=== PATIENT | male | born 1940 | race Caucasian/White ===

== ENCOUNTER 2019-05-07 10:20 | Outpatient (CLI) | payer MEDICARE ==
[~2019-05-07 10:20] MED LIST: EPINEPHrine 1 MG/ML AMP ONE; Iopamidol 300 61% 50 ML VIAL FS ONE; Lidocaine 1% PF 10 ML AMP ONE
--- NOTE | 2019-05-07 11:52 | RAD ---
PROCEDURE: Fluoroscopic left shoulder arthrogram INDICATION: Left shoulder pain COMPARISON: None TECHNIQUE: Informed consent was obtained. 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 The patient was placed supine on the fluoroscopic table. A timeout was performed. Site overlying the left shoulder was prepped and draped in the usual sterile fashion. Buffered 1% lidocaine was admi nistered into the overlying subcutaneous tissues. Under fluoroscopic guidance, a 22-gauge spinal needle was guided down into the left glenohumeral joint. Confirmation of needle localization was conf irmed by injecting 1 cc of the buffered 1% lidocaine. Following this 8 0)of the dilute Isovue solution CT Mix: 30 mL total volume consisting of 20 mL normal saline, 5 mL Isovue 300, 5 mL 1% Lido karla, 0.1 mL Epi 1 mg/ml) was injected. Contrast was visualized within the left glenohumeral joint with fluoroscopy. The needle was removed. The injection site was then cleansed and bandage. The patie nt tolerated the injection without difficulty. Fluoroscopic time: 1.1minutes Fluoroscopic dose: 62mcg/sq m FINDINGS: Severe left glenohumeral osteoarthrosis. Left-sided pacemaker. IMPRESSION: Successful left shoulder arthrogram. The patient is to have a follow-up CTarthrogram of t he left shoulder. Please see this report for further details.
--- NOTE | 2019-05-07 12:31 | CT ---
CT ARTHROGRAM OF THE LEFT SHOULDER: INDICATION: Left shoulder pain. TECHNIQUE: Multiple CT images were obtained of the left shoulder following intraarticular administration of dilu te Isovue solution. Please see the separately dictated left shoulder arthrogram report for full details concerning the injection technique. FINDINGS: There are calcified pleural plaques involving the left hemithorax. There is a dual-lead pacemaker ove rlying the left chest wall. There are coronary artery and thoracic aortic calcifications. No acute fracture is evident. There is advanced glenohumeral osteoarthrosis. There is a chronic-appearing grad e III AC separation with some fragmentation involving the distal left clavicle. There is a full-thickness tear involving the anterior supraspinatus at the footprint measuring 1.1 x 1.5 cm in i ts greatest AP and mediolateral dimensions respectively. There is some intratendinous delamination of the tear into the anterior to mid aspect of the supraspinatus tendon. There is contrast extending into the subacromial subdeltoid bursa. There is nonvisualization of a normal intraarticular biceps tendon consistent with complete disruption and distal retraction. No large intraarticular body is artemio dent. No noy muscular atrophy is evident. No enlarged lymph nodes are present. IMPRESSION: 1. Full-thickness tear of the anterior supraspinatus at the footprint with some mild intratendinous d elamination extending into the anterior to mid supraspinatus tendon. 2. Full-thickness disruption of the long head biceps tendon with distal retraction beyond the bicipit al groove. 3. Severe glenohumeral osteoarthrosis. 4. Chronic grade III AC separation with remote-appearing distal fragmentation of the distal clavicle. 5. 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 Transcribed Date/Time: 05/07/2019 1:13 PM
== END 2019-05-07 10:21 | disposition home or self-care (01) ==
LOC: RAD 10:20
PROVIDERS: ATTEND Orthopaedic Surgery
DX: M25.512 Pain in left shoulder (principal); M75.122 Complete rotator cuff tear or rupture of left shoulder, not specified as traumatic; M19.012 Primary osteoarthritis, left shoulder; Z98.890 Other specified postprocedural states
CPT/HCPCS: 23350

== ENCOUNTER 2019-06-22 10:16 | Outpatient (CLI) | payer MEDICARE ==
--- NOTE | 2019-06-22 10:43 | RAD ---
KUB AND UPRIGHT: Date: 06/22/2019 HISTORY: Abdominal pain, constipation. History of colon polyps. FINDINGS: The bowel gas pattern is nonobstructed with air in both small and large bowel. No free air demonstrat ed. No renal calculi. Postoperative changes at L5-S1 level are noted. Dorsal column stimulator is pre sent. There are arthritic changes of the spine and hips. IMPRESSION: No acute changes. POS: YANELIS
== END 2019-06-22 10:17 | disposition home or self-care (01) ==
LOC: BICRAD 10:16
PROVIDERS: ATTEND Internal Medicine Gastroenterology
DX: K59.00 Constipation, unspecified (principal); R63.4 Abnormal weight loss; R19.4 Change in bowel habit; Z80.0 Family history of malignant neoplasm of digestive organs; Z86.010 Personal history of colon polyps
CPT/HCPCS: 74019

== ENCOUNTER 2019-07-19 05:38 | Inpatient (IN) | payer MEDICARE ==
[2019-07-18 10:46] VITALS: BMI 33.9
[2019-07-19] MEDS ORDERED: Phenylephrine HCL 10 MG/ML VIAL ONE (06:06)
[2019-07-19] MEDS ORDERED: Lidocaine 2% Jelly 5 ML TUBE ONE (06:06)
[2019-07-19] MEDS ORDERED: Vancomycin 1.5 GRAM/300 ML BAG 1.5 GM/300 ML BAG ONE (06:07)
[2019-07-19] MEDS ORDERED: Midazolam HCl 2 mg/2 ml Vial ONE (06:36)
[2019-07-19] MEDS ORDERED: Fentanyl 100 MCG/2 ML VIAL ONE (06:36)
[2019-07-19 06:39] LABS: #Basophils 0.1 thou/uL (0.0-0.2); #Eosinphils 0.2 thou/uL (0.0-0.7); #Lymphocytes 4.2 thou/uL (1.20-3.40); #Neutrophils 7.2 thou/uL (1.40-6.50); %Basophils 0.7 % (0.0-1.0); %Eosinophils 1.5 % (0.0-10.0); %Lymphocytes 32.9 % (21.0-51.0); %Monocytes 7.9 % (0.0-10.0); Hemoglobin 14.5 g/dL (14.0-18.0); Mean Corpuscular HGB CONC 35.8 g/dL (32.0-36.0); Mean Corpuscular Hemoglobin 33.6 pg (27.0-31.0); Mean Corpuscular Volume 93.8 fL (78.0-98.0); Mean Platelet Volume 7.5 fL (7.4-10.4); Platelet Count 247 thou/uL (130-400); Red Blood Cell (RBC) Count 4.32 mill/uL (4.70-6.10); White Blood Cell (WBC) Count 12.6 thou/uL (4.8-10.8)
[2019-07-19 06:45] LABS: Prothrombin Time 12.8 SEC (12.0-14.7)
[2019-07-19 06:58] LABS: Anion Gap 14 mmol/L (10-20); BUN (Urea Nitrogen) 21 mg/dL (8.4-25.7); Calc. Creatinine Clearance 89 mL/min (70-130); Calcium 9.3 mg/dL (7.8-10.44); Carbon Dioxide 22 mmol/L (23-31); Chloride 109 mmol/L (98-107); Estimated GFR-MDRD 67; Glucose 86 mg/dL (83-110); Potassium 3.9 mmol/L (3.5-5.1); Sodium 141 mmol/L (136-145)
[2019-07-19] MEDS ORDERED: Tranexamic Acid 1,000 MG/10 ML VIAL ONE (07:18)
[2019-07-19] MEDS ORDERED: Sodium Chloride 0.9% 100 ML ONE (07:18)
[2019-07-19] MEDS ORDERED: traMADol HCl 50 MG TAB PO PRN ×4 (07:26→11:30)
[2019-07-19] MEDS ORDERED: Ropivacaine 0.2% 550 ML 550 ML NERVE BLCK SCH (07:26)
[2019-07-19] MEDS ORDERED: Ondansetron PF 4 MG/2 ML Vial IVP PRN ×2 (07:26→11:30)
[2019-07-19] MEDS ORDERED: Zolpidem Tartrate 5 MG TAB PO PRN ×2 (07:26→11:30)
[2019-07-19] MEDS ORDERED: Acetaminophen 325 MG TAB PO PRN ×2 (07:26→11:30)
[2019-07-19] MEDS ORDERED: HYDROcodone/Acetaminophen 10/325 mg Tablet PO PRN ×4 (07:26→11:30)
[2019-07-19] MEDS ORDERED: Promethazine HCl 25 MG/ML VIAL IM PRN ×2 (07:26→10:26)
[2019-07-19] MEDS ORDERED: Fentanyl 100 MCG/2 ML VIAL SLOW IVP PRN (07:27)
[2019-07-19] MEDS ORDERED: Ropivacaine 0.2% HCl/PF (40 MG/20 ML VIAL) ONE (07:30)
[2019-07-19] MEDS ORDERED: Rocuronium Bromide 10 MG/ML (10ML VIAL) ONE (07:30)
[2019-07-19] MEDS ORDERED: PHENYLEPHRINE-NS 100 MCG/ML 10 ML SYRINGE ONE (07:30)
[2019-07-19] MEDS ORDERED: Ropivacaine 0.5% HCl/PF (150 MG/30 ML VIAL) ONE (07:30)
[2019-07-19] MEDS ORDERED: Dexamethasone 20 MG/5 ML VIAL ONE (07:30)
[2019-07-19] MEDS ORDERED: Ondansetron PF 4 MG/2 ML Vial ONE (07:30)
[2019-07-19] MEDS ORDERED: PROPOFOL 200 MG/20 ML VIAL ONE (07:30)
[2019-07-19] MEDS ORDERED: Glycopyrrolate 0.2 MG/ML 5 ML SYRINGE ONE (07:30)
--- NOTE | 2019-07-19 09:05 | HP ---
CHIEF COMPLAINT: Left shoulder pain. HISTORY OF PRESENT ILLNESS: Mr. Bose is an 78-year-old male, who presents for follow up pain of his bilateral shoulder, left greater than right. The patient states that the pain interrupts his sleep. He has pain with increased activities around the house. His previous injections have provided relief, but diminishing relief. He continues to have pain despite conservative measures. The patient is right-hand dominant. He still takes care of cattle. Pain can be 4 to 7/10, difficulty sleeping on that side. PAST MEDICAL HISTORY: Includes hypercholesterolemia, hypertension, depression, hair loss, sleep apnea, and vertigo. PAST SURGICAL HISTORY: Left shoulder surgery x2, unspecified knee surgery, low back surgery, cervical fusion, left total knee replacement, arthroscopy, right total knee arthroplasty, lumbar laminectomy, and cervical laminectomy. ALLERGIES: TO TAPES, ADHESIVES. MEDICATIONS: Include; 1. Aspirin. 2. Fluoxetine. 3. Gabapentin. 4. Linaclotide. 5. Lutein. 6. Magnesium. 7. Melatonin. 8. Multivitamin. 9. Iron. 10. Folic acid. 11. Centrum Silver. 12. . 13. Simvastatin. 14. Vitamin C. 15. . SOCIAL HISTORY: The patient is a nonsmoker. No history of alcohol use. 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 PHYSICAL EXAMINATION: GENERAL: Alert and oriented male, in no acute distress, resting comfortably in bed. Hard of hearing. MUSCULOSKELETAL: Left shoulder, the patient still has about 104 degrees of overhead elevation, 4 degrees of external rotation. The patient has 4/5 infraspinatus, 4 -/5 supraspinatus strength. The patient has pain with Dupont'. Neurovascularly intact distally. Brisk cap refill. DIAGNOSTIC DATA: X-ray show a B1 glenoid with goats graham deformity. CT scan shows a full-thickness supraspinatus tear with retraction and some mild atrophy, full-thickness biceps tear and a chronic AC joint separation. IMPRESSION: Left rotator cuff tear, degenerative arthritis. ASSESSMENT AND PLAN: Given the patient's CT scan results, I am concerned about performing total shoulder if there is no intact cuff. Occasionally on the arthrogram, there is a site over-read, but if I do not find a cuff, I would recommend a reverse shoulder arthroplasty for the patient. I discussed with him the risks and benefits of reverse shoulder versus total. I discussed the risks and benefits of the surgery to include, pain, scar, bleeding, infection, damage to vital structures, decreased range of motion and strength, continued pain despite surgical intervention, and loss of life or limb. The patient and family understands these risks and benefits and elected to proceed. They understands that afterwards if it is reverse, he will do increased weightbearing as before and we will have to limit his weightbearing to this left arm. They understands this. He would like to proceed with a left total versus reverse shoulder arthroplasty. Job ID: [id number] MTDD
[2019-07-19] MEDS ORDERED: Ondansetron HCl/PF 4 MG/2 ML Vial IVP PRN (10:26)
[2019-07-19] MEDS ORDERED: Promethazine HCl 25 MG/ML VIAL SLOW IVP PRN (10:26)
[2019-07-19] MEDS ORDERED: HYDROmorphone 2 MG/ML VIAL SLOW IVP PRN (10:26)
[2019-07-19] MEDS ORDERED: Ondansetron ODT 4 MG TAB PO PRN (11:30)
[2019-07-19] MEDS ORDERED: Bisacodyl 10 MG SUPP PR PRN (11:30)
[2019-07-19] MEDS ORDERED: Morphine 2 MG/ML SYRINGE SLOW IVP PRN (11:30)
[2019-07-19] MEDS ORDERED: Ketorolac Tromethamine 30 MG/ML VIAL IM/IV PRN (11:30)
[2019-07-19] MEDS ORDERED: Methocarbamol 500 MG TAB PO PRN (11:30)
[2019-07-19] MEDS ORDERED: Methocarbamol 1 GM/10 ML VIAL SLOW IVP PRN (11:30)
[2019-07-19] MEDS ORDERED: Milk Of Magnesia 30 ML UDCUP PO PRN (11:30)
[2019-07-19] MEDS ORDERED: diphenhydrAMINE 50 MG CAP PO PRN (11:30)
[2019-07-19] MEDS ORDERED: Famotidine 20 MG TAB PO SCH (12:15)
[2019-07-19] MEDS: Ketorolac Tromethamine 30 MG/ML VIAL IVP SCH ×3 (14:01→23:28)
--- NOTE | 2019-07-19 15:27 | OP ---
DATE OF PROCEDURE: 07/19/2019 PREOPERATIVE DIAGNOSES: 1. Left shoulder osteoarthritis. 2. Left full-thickness tear based on CT arthrogram. 3. Biceps rupture. POSTOPERATIVE DIAGNOSES: 1. Left shoulder osteoarthritis. 2. Left biceps rupture. 3. No full-thickness rotator cuff tear noted. PROCEDURE PERFORMED: Left total shoulder arthroplasty. VACUUM DRUM DRIER OPERATOR: Chris Bullock PA-C ANESTHESIOLOGIST: Tiffanie Menon MD ANESTHESIA: The patient received a general endotracheal intubation with interscalene block. ESTIMATED BLOOD LOSS: 300 mL. TOURNIQUET TIME: None. IMPLANTS: A Tornier Ascend Flex standard size 4C humeral stem, a Colles head 48 x 18 mm, and an Aequalis Perform CortiLoc pegged glenoid size M40. ANTIBIOTICS: Simplex cement. The patient had TXA 1 g, vancomycin 1.5 g, and Ancef 2 g. COMPLICATIONS: None. HISTORY OF PRESENT ILLNESS: Mr. Bose is an 78-year-old male, who works as a arias, very active. He had 140 to 150 degrees of rotate motion with relatively good strength. CT scan showed a cuff tear. I discussed with the patient the risks and benefits of left total shoulder versus reverse shoulder arthroplasty and biceps. The patient desired as much function and ability to weight bear. I was concerned about a reverse with picking up 50-pound feed sacks. I discussed the risks and benefits of a left total shoulder versus reverse to include pain, scar, bleeding, infection, damage to vital structures, decreased range of motion and strength, need for revision, continued pain despite surgery intervention, and loss of life or limb. The patient understands the risks and benefits of the procedure and elected to proceed. DESCRIPTION OF PROCEDURE: Time-out was performed designating the patient's left upper extremity as the operative site based on site, consents, and marking. After a time-out, the patient's left upper extremity was prepped and draped in a sterile fashion. An incision was made down through the deltopectoral interval. Ko had been placed and was medial over the patient's pacemaker. We made an incision down through the skin, came into the interval, took down some of the pecs, exposed the humerus. The biceps was ruptured. We came down, took a little through the conjoint, exposed medial and lateral. We came down through the biceps groove, which had already been ruptured. We took an osteotome, took a section of the lesser for LTO, peeled the remainder and exposed the humeral head. The cuff actually although bulbous was intact. There was cuff intact throughout the footprint. Given this, we inverted the head, we elected to go with a total shoulder for the patient's overall improved function. We made an incision, took a blade, cut the bone and removed the humeral head. We rongeured off the osteophytes inferiorly circumferentially to remnant normal humerus. We then started our broach. We broached up to a size 3, placed our reamer, reamed down, cut to ensure we had a good plane surface and then locked into place, put a . We moved the glenoid at 360 degree release of the labrum, exposed the glenoid. We placed a 5 degree angulated M40, which seemed to size the best, pinned it into place and reamed on top. We started at the center hole, placed our guide in place and drilled the 3 pegs for CortiLoc pegged glenoid, trialed, had good overall fit. We removed, washed, dried out the glenoid, cemented the pegs and cemented our pegged glenoid, let it rest for 18 minutes. We went back, we broached up, placed a size 4 stem. Had better fit, overall alignment. We then placed our 4, 48, it tracked well, anterior to posterior. We had overall good range of motion, aligned up well good mismatch. Therefore, we removed it, placed drill holes for #4 Ethibond on the border of the lesser LTO to help to kind of sew it down into place. We placed four #5 Ethibonds and then one through the cuff and out through the stem as an "around the world" stitch to attach to our initial cuff stitch, passed all 4 stitches in whipstitch fashion and sewed them closed, cut the needles. We used a #1 Ethibond to close the rotator interval. We closed with the [id number] stitch, cut the suture, washed and had to cauterize portion of the saphenous. He had some damage to the pectoral and deltoid from retraction, but otherwise good alignment. We washed, closed with 0, 2-0, and skin felipe. The patient will begin passive range of motion, external rotation not greater than 30, and pendulum and rufus exercises will be followed in-house. He will be discharged home tomorrow if everything is in order. Job ID: [id number]
[2019-07-19] MEDS: CEFAZOLIN 2 GM in Premix Bag 1 BAG IVPB SCH ×2 (16:06→23:30)
--- NOTE | 2019-07-19 16:48 | EKG ---
Test Reason : PREOP Blood Pressure : / mmHG Vent. Rate : 062 BPM Atrial Rate : 062 BPM P-R Int : 214 ms QRS Dur : 096 ms QT Int : 424 ms P-R-T Axes : 078 -08 011 degrees QTc Int : 430 ms Electronic atrial pacemaker When compared with ECG of 31-OCT-2016 09:16, Electronic atrial pacemaker has replaced Sinus rhythm Nonspecific T wave abnormality, worse in Inferior leads Confirmed by DR. Christopher HILL ([id number]) on 07/19/2019 4:47:53 PM Referred By: HAKEEM Confirmed By:DR. Christopher HILL
[2019-07-19] MEDS: Lactated Ringer's 1,000 ML IV SCH (17:30)
[2019-07-19] MEDS ORDERED: Vancomycin 1.5 GRAM/300 ML BAG 1.5 GM in Premix Bag 1 BAG IVPB SCH (18:00)
[2019-07-19] MEDS ORDERED: Vancomycin HCl 1.5 GM in Sodium Chloride 0.9% 250 ML 300 ML IVPB SCH (18:00)
[2019-07-19] MEDS: Famotidine 20 MG TAB PO SCH (20:27)
[2019-07-19] MEDS ORDERED: Gabapentin 300 MG CAP PO SCH (21:30)
[2019-07-19] MEDS ORDERED: Aspirin 81 mg Enteric Coated Tablet PO SCH (21:30)
[2019-07-19] MEDS ORDERED: Simvastatin 20 MG TAB PO SCH (21:30)
[2019-07-19] MEDS ORDERED: Melatonin 3 MG TAB PO SCH (21:30)
[2019-07-20] MEDS: Lactated Ringer's 1,000 ML IV SCH (05:32)
[2019-07-20] MEDS: Ketorolac Tromethamine 30 MG/ML VIAL IVP SCH (06:31)
[2019-07-20] MEDS ORDERED: LINACLOTIDE 290 MCG PO SCH (08:00)
[2019-07-20] MEDS: Famotidine 20 MG TAB PO SCH (08:52)
[2019-07-20] MEDS ORDERED: Multivitamin W/ Minerals 1 TAB PO SCH (09:00)
[2019-07-20] MEDS ORDERED: FLUoxetine HCl 20 MG CAP PO SCH (09:00)
[2019-07-20] MEDS ORDERED: Gabapentin 300 MG CAP PO SCH (09:00)
[2019-07-20] MEDS ORDERED: Magnesium Oxide 250 MG TAB PO SCH (09:00)
[2019-07-20 09:51] VITALS: BP 148/82; TEMP 98.6
[2019-07-20] MEDS ORDERED: Ibuprofen 200 MG TAB PO SCH (11:00)
[2019-07-20] MEDS ORDERED: Melatonin 3 MG TAB PO SCH (21:00)
[2019-07-20] MEDS ORDERED: Simvastatin 20 MG TAB PO SCH (21:00)
[2019-07-20] MEDS ORDERED: Aspirin 81 mg Enteric Coated Tablet PO SCH (21:00)
== END 2019-07-20 15:20 | disposition home or self-care (01) | DRG 483 ==
LOC: SDC 05:38 → SJJU 06:54 → SDC 07-20 10:02
PROVIDERS: ADMIT Orthopaedic Surgery; ATTEND Orthopaedic Surgery
PROC: 0RRK0JZ Replacement of Left Shoulder Joint with Synthetic Substitute, Open Approach (ICD-10-PCS; principal; 2019-07-19)
DX: M19.012 Primary osteoarthritis, left shoulder (principal); E78.00 Pure hypercholesterolemia, unspecified; I10 Essential (primary) hypertension; F32.9 Major depressive disorder, single episode, unspecified; Z96.653 Presence of artificial knee joint, bilateral; G47.33 Obstructive sleep apnea (adult) (pediatric); E78.5 Hyperlipidemia, unspecified; K21.9 Gastro-esophageal reflux disease without esophagitis; N40.0 Benign prostatic hyperplasia without lower urinary tract symptoms; S43.422A Sprain of left rotator cuff capsule, initial encounter; Z98.1 Arthrodesis status; Z95.0 Presence of cardiac pacemaker; Z91.048 Other nonmedicinal substance allergy status; Z79.82 Long term (current) use of aspirin; Z79.899 Other long term (current) drug therapy
CPT/HCPCS: 36415; 80048; 85025; 85610; 93005; 93010; A4306; C1713; J0690; J1100; J1885; J2250; J2370; J2405; J2704; J2795; J3010; J3490

== ENCOUNTER 2019-08-31 19:27 | Emergency (ER) | payer MEDICARE | END 2019-08-31 20:11 | disposition home or self-care (01) | LOC: ERS 19:27 | DX: K11.5 Sialolithiasis (principal); E78.5 Hyperlipidemia, unspecified; E78.00 Pure hypercholesterolemia, unspecified; I10 Essential (primary) hypertension; F32.9 Major depressive disorder, single episode, unspecified; Z79.82 Long term (current) use of aspirin; Z79.899 Other long term (current) drug therapy | CPT/HCPCS: 99282 ==

== ENCOUNTER 2022-09-27 20:33 | Inpatient (IN) | payer MEDICARE ==
[2022-09-27 22:09] VITALS: BMI 25.2
[2022-09-27] MEDS ORDERED: Acetaminophen 325 MG TAB PO PRN (22:30)
[2022-09-27] MEDS ORDERED: Calcium Carbonate 500 MG ChewTAB PO PRN (22:30)
[2022-09-27] MEDS ORDERED: Senokot S 8.6-50 MG TAB PO PRN (22:30)
[2022-09-27] MEDS ORDERED: Ondansetron ODT 4 MG TAB PO PRN (22:30)
[2022-09-27] MEDS ORDERED: Aspirin Chewable 81 MG TAB PO SCH (22:45)
[2022-09-28] MEDS ORDERED: Melatonin 3 MG TAB PO SCH ×4 (00:45→21:00)
[2022-09-28 04:49] LABS: #Eosinphils 0.1 thou/uL (0.0-0.7); #Monocytes 0.8 thou/uL (0.11-0.59); #Neutrophils 3.3 thou/uL (1.40-6.50); %Basophils 0.5 % (0.0-1.0); %Eosinophils 1.9 % (0.0-10.0); %Lymphocytes 28.8 % (21.0-51.0); %Monocytes 13.1 % (0.0-10.0); %Neutrophils 55.4 % (42.0-75.0); Hemoglobin 10.3 g/dL (14.0-18.0); Mean Corpuscular HGB CONC 33.6 g/dL (32.0-36.0); Mean Corpuscular Hemoglobin 32.9 pg (27.0-31.0); Mean Corpuscular Volume 98.1 fl (78.0-98.0); Mean Platelet Volume 9.9 fL (7.4-10.4); Platelet Count 145 10x3/uL (130-400); RBC Distribution Width 12.1 % (11.5-14.5); Red Blood Cell (RBC) Count 3.13 mill/uL (4.70-6.10); White Blood Cell (WBC) Count 5.9 10x3/uL (4.8-10.8)
[2022-09-28 05:15] LABS: ALT (SGPT) 10 U/L (8-55); AST (SGOT) 12 U/L (5-34); Albumin 3.6 g/dL (3.4-4.8); Alkaline Phosphatase 96 U/L (40-110); Anion Gap 12 mmol/L (10-20); BUN (Urea Nitrogen) 16 mg/dL (8.4-25.7); Bilirubin, Total 0.7 mg/dL (0.2-1.2); Calc. Creatinine Clearance 63 mL/min (70-130); Calcium 8.7 mg/dL (7.8-10.44); Carbon Dioxide 22 mmol/L (23-31); Cardiac Risk 3.2 (Less than 4.5); Chloride 111 mmol/L (98-107); Cholesterol 123 mg/dl (< 200 Desired); Estimated GFR 67; Globulin 2.6 g/dL (2.4-3.5); Glucose 89 mg/dL (83-110); HDL Cholesterol 39 mg/dL (>60 Neg Risk); LDL Cholesterol, Calculated 63 mg/dL; Potassium 3.9 mmol/L (3.5-5.1); Protein, Total 6.2 g/dL (5.8-8.1); Sodium 141 mmol/L (136-145); Triglycerides 105 mg/dL (Less than 150)
[2022-09-28] MEDS: Gabapentin 300 MG CAP PO SCH ×2 (08:03→20:21)
[2022-09-28] MEDS: Multivitamin W/ Minerals 1 TAB PO SCH (08:03)
[2022-09-28] MEDS: FLUoxetine HCl 20 MG CAP PO SCH (08:04)
[2022-09-28] MEDS: Aspirin 81 mg Enteric Coated Tablet PO SCH (08:04)
[2022-09-28] MEDS: Famotidine 20 MG TAB PO SCH ×2 (08:04→20:21)
[2022-09-28] MEDS: (Linaclotide [Linzess] 290 MCG Capsule) PO SCH (08:04)
[2022-09-28] MEDS ORDERED: Magnesium Oxide 400 MG TAB PO SCH (09:00)
[2022-09-28] MEDS ORDERED: Atorvastatin Calcium 40 MG TAB PO SCH (21:00)
[2022-09-28] MEDS ORDERED: traZODone HCl 50 MG TAB PO SCH (23:00)
[2022-09-29 05:22] LABS: #Eosinphils 0.2 thou/uL (0.0-0.7); #Monocytes 0.6 thou/uL (0.11-0.59); #Neutrophils 2.5 thou/uL (1.40-6.50); %Basophils 0.4 % (0.0-1.0); %Lymphocytes 33.5 % (21.0-51.0); %Monocytes 12.8 % (0.0-10.0); %Neutrophils 50.1 % (42.0-75.0); Hemoglobin 11.2 g/dL (14.0-18.0); Mean Corpuscular HGB CONC 32.7 g/dL (32.0-36.0); Mean Corpuscular Hemoglobin 33.1 pg (27.0-31.0); Mean Corpuscular Volume 101.2 fl (78.0-98.0); Platelet Count 152 10x3/uL (130-400); RBC Distribution Width 12.4 % (11.5-14.5); Red Blood Cell (RBC) Count 3.38 mill/uL (4.70-6.10); White Blood Cell (WBC) Count 4.9 10x3/uL (4.8-10.8)
[2022-09-29 05:45] LABS: Anion Gap 11 mmol/L (10-20); BUN (Urea Nitrogen) 12 mg/dL (8.4-25.7); Calc. Creatinine Clearance 69 mL/min (70-130); Calcium 8.7 mg/dL (7.8-10.44); Carbon Dioxide 26 mmol/L (23-31); Chloride 107 mmol/L (98-107); Estimated GFR 76; Glucose 88 mg/dL (83-110); Sodium 140 mmol/L (136-145)
[2022-09-29] MEDS: FLUoxetine HCl 20 MG CAP PO SCH (08:19)
[2022-09-29] MEDS: Multivitamin W/ Minerals 1 TAB PO SCH (08:19)
[2022-09-29] MEDS: Famotidine 20 MG TAB PO SCH (08:19)
[2022-09-29] MEDS: Gabapentin 300 MG CAP PO SCH (08:19)
[2022-09-29] MEDS: Aspirin 81 mg Enteric Coated Tablet PO SCH (08:19)
[2022-09-29] MEDS: (Linaclotide [Linzess] 290 MCG Capsule) PO SCH (08:25)
[2022-09-29 11:50] VITALS: BP 146/82; TEMP 98
== END 2022-09-29 15:13 | disposition home or self-care (01) | DRG 149 ==
LOC: NEURO 21:46 → OBSVTOIN 09-28 11:53
PROVIDERS: ADMIT Student in an Organized Health Care Education/Training Program; ATTEND Internal Medicine
DX: H81.399 Other peripheral vertigo, unspecified ear (principal); R27.0 Ataxia, unspecified; I95.9 Hypotension, unspecified; E78.5 Hyperlipidemia, unspecified; R00.1 Bradycardia, unspecified; N18.2 Chronic kidney disease, stage 2 (mild); I12.9 Hypertensive chronic kidney disease with stage 1 through stage 4 chronic kidney disease, or unspecified chronic kidney disease; Z96.619 Presence of unspecified artificial shoulder joint; Z96.653 Presence of artificial knee joint, bilateral; F32.9 Major depressive disorder, single episode, unspecified; Z95.0 Presence of cardiac pacemaker; Z79.82 Long term (current) use of aspirin; Z79.899 Other long term (current) drug therapy; Z90.89 Acquired absence of other organs; Z90.79 Acquired absence of other genital organ(s); Z90.49 Acquired absence of other specified parts of digestive tract
CPT/HCPCS: 36415; 70551; 80048; 80053; 80061; 85025; 93306; 93880; G0378; J1650

== ENCOUNTER 2024-06-14 00:42 | Observation (INO) | payer MEDICARE ==
[2024-06-15 02:17] VITALS: BMI 23.4
[2024-06-15] MEDS ORDERED: Ondansetron ODT 4 MG TAB PO PRN (02:45)
[2024-06-15] MEDS ORDERED: Acetaminophen 650 MG Suppository PR PRN (02:45)
[2024-06-15] MEDS ORDERED: Ondansetron PF 4 MG/2 ML Vial IVP PRN (02:45)
[2024-06-15] MEDS ORDERED: Calcium Carbonate 500 MG ChewTAB PO PRN (02:45)
[2024-06-15 04:48] LABS: #Basophils 0.03 10x3/uL (0.0-0.2); %Basophils 0.6 % (0.0-1.0); %Eosinophils 3.3 % (0.0-10.0); %Lymphocytes 28.2 % (21.0-51.0); %Monocytes 16.3 % (0.0-10.0); %Neutrophils 51.4 % (42.0-75.0); Hematocrit 32.4 % (42.0-52.0); Hemoglobin 11.3 g/dL (14.0-18.0); Mean Corpuscular HGB CONC 34.9 g/dL (32.0-36.0); Mean Corpuscular Hemoglobin 34.5 pg (27.0-31.0); Mean Corpuscular Volume 98.8 fL (78.0-98.0); Mean Platelet Volume 9.9 fL (7.4-10.4); Platelet Count 173 10x3/uL (130-400); RBC Distribution Width 12.1 % (11.5-14.5); Red Blood Cell (RBC) Count 3.28 mill/uL (4.70-6.10)
[2024-06-15 06:59] LABS: Troponin I 0.016 ng/mL (< 0.028)
[2024-06-15 08:45] LABS: ALT (SGPT) 8 U/L (Less than 45); AST (SGOT) 19 U/L (11-34); Albumin 3.5 g/dL (3.1-4.5); Anion Gap 13 mmol/L (10-20); BUN (Urea Nitrogen) 14 mg/dL (8.4-25.7); Bilirubin, Total 1.2 mg/dL (0.3-1.2); Calc. Creatinine Clearance 54 mL/min (70-130); Calcium 9.2 mg/dL (7.8-10.44); Carbon Dioxide 22 mmol/L (23-31); Cardiac Risk 2.4 (Less than 4.5); Chloride 108 mmol/L (98-107); Cholesterol 112 mg/dl (< 200 Desired); Estimated GFR 64; Globulin 3.3 g/dL (2.4-3.5); Glucose 127 mg/dL (83-110); HDL Cholesterol 46 mg/dL (>60 Neg Risk); LDL Cholesterol, Calculated 51 mg/dL; Potassium 3.6 mmol/L (3.5-5.1); Protein, Total 6.8 g/dL (5.8-8.1); Sodium 139 mmol/L (136-145); Triglycerides 77 mg/dL (Less than 150)
[2024-06-15] MEDS: Famotidine 20 MG TAB PO SCH (09:15)
[2024-06-15] MEDS: Famotidine/PF 20 mg/2ml Vial SLOW IVP SCH (09:15)
[2024-06-15] MEDS: Aspirin Chewable 81 MG TAB PO SCH (09:15)
[2024-06-15 09:30] LABS: Alkaline Phosphatase 77 U/L (40-110)
[2024-06-15] MEDS ORDERED: Regadenoson 0.4 MG/5 ML SYRINGE ONE (10:32)
[2024-06-15] MEDS ORDERED: Iopamidol-370 76% 500 ML MDV (1 ML CHARGE) ONE (13:33)
[2024-06-15] MEDS: traZODone HCl 150 MG TAB PO SCH (20:47)
[2024-06-15] MEDS: Atorvastatin Calcium 10 MG TAB PO SCH (20:47)
[2024-06-15] MEDS: Metoprolol Succinate XL 25 MG ER.TAB PO SCH (20:47)
[2024-06-15] MEDS: Gabapentin 300 MG CAP PO SCH (20:47)
[2024-06-15] MEDS: Acetaminophen 325 MG TAB PO PRN (20:47)
[2024-06-16] MEDS: FLUoxetine HCl 20 MG CAP PO SCH (09:37)
[2024-06-16] MEDS: Clopidogrel Bisulfate 75 MG TAB PO SCH (09:37)
[2024-06-16] MEDS: Meloxicam 7.5 MG TAB PO SCH (09:38)
[2024-06-16] MEDS: Isosorbide Mononitrate 30 MG ER.TAB PO SCH (09:39)
[2024-06-16 12:00] VITALS: BP 87/50; TEMP 98.3
== END 2024-06-16 14:00 | disposition home or self-care (01) ==
LOC: 2NO 06-15 01:45
PROVIDERS: ADMIT Student in an Organized Health Care Education/Training Program; ATTEND Family Medicine
DX: R07.89 Other chest pain (principal); I10 Essential (primary) hypertension; R91.1 Solitary pulmonary nodule; E78.5 Hyperlipidemia, unspecified; Z95.0 Presence of cardiac pacemaker; Z90.49 Acquired absence of other specified parts of digestive tract; Z90.89 Acquired absence of other organs; Z98.890 Other specified postprocedural states
CPT/HCPCS: 71275; 78452; 80053; 80061; 84484 ×2; 85025; 93017; A9502; G0378 ×2; J2785 ×2; Q9967; 36415